=== PATIENT | female | born 2000 | race African-American/Black ===

== ENCOUNTER 2022-07-16 04:21 | Observation (INO) ==
[2022-07-16] MEDS ORDERED: HYDROmorphone 1 MG/1 ML SYRINGE IV STA (04:58)
[2022-07-16] MEDS ORDERED: ONDANSETRON 4 MG/2 ML VIAL IV STA (04:58)
[2022-07-16] MEDS ORDERED: VANCOMYCIN INJ 1,000 MG in SODIUM CHLORIDE 0.9% 250 ML IV STA (04:58)
[2022-07-16] MEDS ORDERED: SODIUM CHLORIDE 0.9% 1,000 ML IV STA (04:58)
[2022-07-16 05:21] LABS: Basophils % 0.2 % (0.0-0.8); Eosinophils # 0.1 10*3/uL (0.0-0.87); Eosinophils % 0.6 % (0.00-10.9); Hematocrit 31.5 VOL% (35.7-47.0); Hemoglobin 9.5 GM/DL (12.0-16.0); Immature Granulocytes % 1.5 %; Immature Granulocytes Absolute 0.22 #; Lymphocytes # 1.1 10*3/uL (1.4-4.0); Lymphocytes % 7.9 % (21.3-54.2); Mean Corpuscular HGB Conc 30.2 GM/DL (32-36); Mean Corpuscular Volume 78.4 FL (87-102); Mean Platelet Volume 9.7 FL (9.6-12.0); Monocytes # 1.8 10*3/uL (0.11-0.8); Monocytes % 12.6 % (1.7-12.7); Neutrophils % 77.2 % (38.7-73.9); Platelet Count 285 T/CUMM (130-400); Red Blood Count 4.02 MC/CUMM (3.8-5.5); Red Cell Distribution Width 16.4 % (9.3-17.3); White Blood Count 14.3 T/CUMM (4-12)
[2022-07-16 05:40] LABS: Albumin 2.1 G/DL (3.4-5.0); Bilirubin,Total 0.4 MG/DL (0.20-1.00); Calcium 8.8 MG/DL (8.5-10.1); Osmolality,Calculated 272.8 MOS/KG (273-304); Potassium 3.4 MMOL/L (3.5-5.1); Total Protein 7.6 G/DL (6.4-8.2)
[2022-07-16] MEDS ORDERED: POTASSIUM CHLORIDE 20 MEQ TABLET PO STA (05:48)
[2022-07-16 06:01] LABS: Band Neutrophils 3 % (0-10); Hypochromia Slight; Lymphocytes 9 % (20-55); Microcytosis 1+; Total Cells Counted 100
[2022-07-16] MEDS ORDERED: CLINDAMYCIN INJ 900 MG/50 ML PREMIX IV STA (06:01)
[2022-07-16] MEDS ORDERED: GENTAMICIN IV ONE (06:01)
[2022-07-16] MEDS ORDERED: SODIUM CHLORIDE 0.9% IV ONE (06:01)
[2022-07-16] MEDS ORDERED: LACTATED RINGERS 1,000 ML IV SCH (12:09)
[2022-07-16] MEDS ORDERED: MAGNESIUM HYDROXIDE SUSP 30 ML UDCUP PO PRN ×2 (12:09→14:12)
[2022-07-16] MEDS ORDERED: ONDANSETRON 4 MG/2 ML VIAL IV PRN ×2 (12:09→14:12)
[2022-07-16] MEDS ORDERED: BISACODYL 10 MG SUPP RECTAL PRN ×2 (12:09→14:12)
[2022-07-16] MEDS ORDERED: ACETAMINOPHEN 325 MG TABLET PO PRN ×2 (12:09→14:12)
[2022-07-16] MEDS ORDERED: MEPERIDINE 50 MG/1 ML VIAL IV STA (12:11)
[2022-07-16] MEDS ORDERED: PROMETHAZINE 25 MG/1 ML VIAL IM STA (12:12)
[2022-07-16] MEDS ORDERED: MEPERIDINE 25 MG/1 ML VIAL ONE (12:19)
[2022-07-16] MEDS ORDERED: BENZOCAINE/MENTHOL LOZENGE 18/BOX PO PRN (14:12)
[2022-07-16] MEDS ORDERED: DOCUSATE SODIUM 100 MG CAPSULE PO PRN (14:12)
[2022-07-16] MEDS ORDERED: IBUPROFEN 800 MG TABLET PO PRN (14:12)
[2022-07-16] MEDS: DOCUSATE SODIUM 100 MG CAPSULE PO SCH ×2 (16:01→21:29)
[2022-07-16] MEDS: LACTATED RINGERS 1,000 ML IV SCH (16:13)
[2022-07-16] MEDS: CLINDAMYCIN INJ 900 MG/50 ML PREMIX IV SCH ×2 (16:13→22:30)
[2022-07-16] MEDS: IBUPROFEN 800 MG TABLET PO PRN (21:29)
[2022-07-17] MEDS: LACTATED RINGERS 1,000 ML IV SCH ×2 (02:29→13:28)
[2022-07-17 05:21] LABS: Basophils % 0.1 % (0.0-0.8); Eosinophils # 0.2 10*3/uL (0.0-0.87); Eosinophils % 2.1 % (0.00-10.9); Hematocrit 28.5 VOL% (35.7-47.0); Hemoglobin 8.5 GM/DL (12.0-16.0); Immature Granulocytes % 1.6 %; Immature Granulocytes Absolute 0.16 #; Lymphocytes # 1.6 10*3/uL (1.4-4.0); Lymphocytes % 16.6 % (21.3-54.2); Mean Corpuscular HGB Conc 29.8 GM/DL (32-36); Mean Corpuscular Volume 79.4 FL (87-102); Mean Platelet Volume 9.9 FL (9.6-12.0); Monocytes # 1.1 10*3/uL (0.11-0.8); Monocytes % 11.3 % (1.7-12.7); Neutrophils % 68.3 % (38.7-73.9); Platelet Count 274 T/CUMM (130-400); Red Blood Count 3.59 MC/CUMM (3.8-5.5); Red Cell Distribution Width 16.1 % (9.3-17.3); White Blood Count 9.8 T/CUMM (4-12)
[2022-07-17] MEDS: CLINDAMYCIN INJ 900 MG/50 ML PREMIX IV SCH ×3 (05:43→21:54)
[2022-07-17] MEDS: DOCUSATE SODIUM 100 MG CAPSULE PO SCH ×2 (09:42→20:12)
[2022-07-17] MEDS ORDERED: LEVOFLOXACIN INJ 750 MG/150 ML PREMIX IV STA (13:28)
[2022-07-17] MEDS: IBUPROFEN 800 MG TABLET PO PRN (13:29)
[2022-07-17 20:17] LABS: Mucus,Urine Occasional /LPF (Occasional); RBC,Urine 40-45 /HPF (0-4); Squamous Epithelial Cell,Urine Occasional /HPF (0-10); Urine Appearance Clear (Clear); Urine Color Yellow (Yellow)
[2022-07-17 20:18] LABS: Bilirubin,Urine Negative (Negative); Blood, Urine Large mg/dL (Negative); Glucose,Urine (UA) Negative (Negative); Ketones,Urine Negative (Negative); Nitrite,Urine Negative (Negative); Protein,Urine Trace mg/dL (Negative); Urine Urobilinogen 0.2 eU/dL (<2.0)
[2022-07-18] MEDS: LACTATED RINGERS 1,000 ML IV SCH ×3 (01:06→08:55)
[2022-07-18] MEDS: CLINDAMYCIN INJ 900 MG/50 ML PREMIX IV SCH (05:50)
[2022-07-18 06:05] LABS: Basophils % 0.4 % (0.0-0.8); Eosinophils # 0.2 10*3/uL (0.0-0.87); Eosinophils % 2.5 % (0.00-10.9); Hematocrit 26.7 VOL% (35.7-47.0); Hemoglobin 8.1 GM/DL (12.0-16.0); Immature Granulocytes % 1.7 %; Immature Granulocytes Absolute 0.12 #; Lymphocytes # 1.6 10*3/uL (1.4-4.0); Lymphocytes % 22.7 % (21.3-54.2); Mean Corpuscular HGB Conc 30.3 GM/DL (32-36); Mean Corpuscular Volume 78.8 FL (87-102); Mean Platelet Volume 9.9 FL (9.6-12.0); Monocytes # 0.7 10*3/uL (0.11-0.8); Neutrophils % 62.7 % (38.7-73.9); Platelet Count 291 T/CUMM (130-400); Red Blood Count 3.39 MC/CUMM (3.8-5.5); Red Cell Distribution Width 16.1 % (9.3-17.3); White Blood Count 7.2 T/CUMM (4-12)
[2022-07-18 06:30] LABS: Platelet Estimate Normal
[2022-07-18 06:31] LABS: Anisocytosis Slight
[2022-07-18] MEDS: DOCUSATE SODIUM 100 MG CAPSULE PO SCH (08:53)
[2022-07-18] MEDS: IBUPROFEN 800 MG TABLET PO PRN (08:58)
[2022-07-18] MEDS ORDERED: LEVOFLOXACIN INJ 750 MG/150 ML PREMIX IV SCH (12:30)
[2022-07-18 15:25] VITALS: BP 147/90
== END 2022-07-18 16:00 | disposition home or self-care (01) ==
LOC: N.ED 04:21 → N.EDINP 04:21 → N.3E 13:08
PROVIDERS: ADMIT Obstetrics & Gynecology; ATTEND Obstetrics & Gynecology